=== PATIENT | female | born 1970 | race Hispanic/Latino ===

== ENCOUNTER 2020-01-14 21:23 | Emergency (ER) | payer SELFPAY ==
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
[2020-01-15 00:33] VITALS: TEMP 97.9
[2020-01-15 00:40] VITALS: BP 119/88; O2SAT 98
== END 2020-01-15 00:10 | disposition left against medical advice (07) ==
LOC: ER 21:23
DX: S32.012A Unstable burst fracture of first lumbar vertebra, initial encounter for closed fracture (principal); X58.XXXA Exposure to other specified factors, initial encounter; Y93.89 Activity, other specified; Y92.89 Other specified places as the place of occurrence of the external cause; R11.2 Nausea with vomiting, unspecified; Z88.1 Allergy status to other antibiotic agents; F17.210 Nicotine dependence, cigarettes, uncomplicated; Z53.29 Procedure and treatment not carried out because of patient's decision for other reasons
CPT/HCPCS: 99283